=== PATIENT | female | born 1980 | race African-American/Black ===

== ENCOUNTER 2016-10-27 21:34 | Emergency (ER) | payer OTHER ==
[~2016-10-27] VITALS: Ht 170.2 cm; Wt 95.3 kg
[~2016-10-27 21:34] MED LIST: BACTRIM DS TAB1 EACH PO; BENADRYL25 MG; DARVOCET-N 1001 EACH PO; FIORICET 50-321 EACH PO; FLEXERIL PO; IBUPROFEN 600600 M1 PO; IBUPROFEN 800800 M1 PO; NEURONTIN 300300 M1 PO; NORCO 5-325 TA1 EACH PO; NORFLEX100 MG PO; PERCOCET 5-3251 EACH PO; PREDNISONE 20 M20 M1 PO; PROAIR HFA8.5 GM; TRAMADOL 50 MG50 MG PO; ULTRAM 50MG TAB50 MG PO; VALIUM2 MG PO
[2016-10-27 21:37] VITALS: BP 159/97
[2016-10-27] MEDS ORDERED: VENLAFAXIN37.5 MG/1 PO (21:42)
[2016-10-27] MEDS ORDERED: ATIVAN0.5 M1 PO (22:07)
== END 2016-10-27 22:31 | disposition home or self-care (01) ==
LOC: ER 21:34
DX: F41.9 Anxiety disorder, unspecified (principal); J45.909 Unspecified asthma, uncomplicated; Z88.1 Allergy status to other antibiotic agents

== ENCOUNTER 2017-09-29 10:33 | Emergency (ER) | payer OTHER ==
[~2017-09-29] VITALS: Ht 170.2 cm; Wt 95.3 kg
[~2017-09-29 10:33] MED LIST changes: +ATIVAN0.5 M1 PO; +VENLAFAXIN37.5 MG/1 PO
[2017-09-29] MEDS ORDERED: MOBIC7.5 MG PO (10:58)
[2017-09-29 11:27] LABS: HEMATOCRIT 30.9 % (37.0-47.0); HEMOGLOBIN 10.1 gm/dL (12.0-15.0); MCH 27.6 pg (26.0-34.0); MCHC 32.7 g/dL (28.0-37.0); MCV 84.4 fL (80.0-100.0); PLATELET COUNT 248 thou/uL (150-400); RBC 3.66 mil/uL (4.20-5.00); RDW 15.8 % (10.5-14.5); WBC 2.4 thou/uL (4.0-11.0)
[2017-09-29 11:36] LABS: CALCIUM 8.5 mg/dL (8.5-10.1); CREATININE 0.7 mg/dL (0.6-1.0); POTASSIUM 3.8 mmol/L (3.5-5.1)
[2017-09-29 11:42] LABS: ALBUMIN 3.2 g/dL (3.4-5.0); TOTAL BILIRUBIN 0.3 mg/dL (<0.1-1.0); TOTAL PROTEIN 7.3 g/dL (6.4-8.2)
[2017-09-29 12:02] LABS: ANISOCYTOSIS 1+; OVALOCYTES 1+
[2017-09-29] MEDS ORDERED: PREDNISONE 20 M20 MG PO (12:02)
[2017-09-29 12:19] VITALS: BP 122/76
== END 2017-09-29 12:19 | disposition home or self-care (01) ==
LOC: ER 10:33
PROVIDERS: Emergency Medicine
DX: R60.9 Edema, unspecified (principal); D72.819 Decreased white blood cell count, unspecified; J45.909 Unspecified asthma, uncomplicated; Z88.8 Allergy status to other drugs, medicaments and biological substances

== ENCOUNTER 2017-10-29 14:13 | Emergency (ER) | payer OTHER ==
[~2017-10-29] VITALS: Ht 170.2 cm; Wt 97.1 kg
[~2017-10-29 14:13] MED LIST changes: +MOBIC7.5 MG PO; +PREDNISONE 20 M20 MG PO
[2017-10-29] MEDS ORDERED: GABAPENTIN 100100 MG PO (14:15)
[2017-10-29 14:32] LABS: URINE BILIRUBIN NEGATIVE (Negative); URINE BLOOD TRACE (Negative); URINE CLARITY SL CLOUDY; URINE COLOR YELLOW; URINE GLUCOSE-RANDOM* NEGATIVE (Negative); URINE KETONES NEGATIVE (Negative); URINE LEUKOCYTES 1+ (Negative); URINE NITRITE NEGATIVE (Negative); URINE PROTEIN (DIPSTICK) NEGATIVE (Negative); URINE SPECIFIC GRAVITY >= 1.030 (1.005-1.035); URINE UROBILINOGEN 0.2 E.U./dl (0.2-1.0)
[2017-10-29] MEDS ORDERED: MACROBID 100 M100 M1 PO (14:36)
[2017-10-29 14:39] LABS: SQUAMOUS 4-10 Moderate /LPF (0-3)
[2017-10-29 14:40] LABS: BACTERIA 1-9 Few /HPF (None Seen); CASTS None Seen /LPF (None Seen); CRYSTALS None Seen /LPF (None Seen); URINE RBC 3-10 Few /HPF (0-2)
== END 2017-10-29 15:09 | disposition home or self-care (01) ==
LOC: ER 14:13
PROVIDERS: Emergency Medicine
DX: N39.0 Urinary tract infection, site not specified (principal); J45.909 Unspecified asthma, uncomplicated; Z88.8 Allergy status to other drugs, medicaments and biological substances

== ENCOUNTER 2018-11-09 05:26 | Emergency (ER) | payer OTHER ==
[~2018-11-09] VITALS: Ht 170.2 cm; Wt 97.5 kg
[~2018-11-09 05:26] MED LIST changes: +GABAPENTIN 100100 MG PO; +MACROBID 100 M100 M1 PO
[2018-11-09] MEDS ORDERED: KEFLEX500 M1 PO (06:22)
[2018-11-09 06:29] VITALS: BP 122/67
== END 2018-11-09 06:30 | disposition home or self-care (01) ==
LOC: ER 05:26
DX: L03.113 Cellulitis of right upper limb (principal); J45.909 Unspecified asthma, uncomplicated; Z88.8 Allergy status to other drugs, medicaments and biological substances

== ENCOUNTER 2020-08-27 22:48 | Emergency (ER) | payer OTHER ==
[~2020-08-27] VITALS: Ht 170.2 cm; Wt 84.4 kg
[~2020-08-27 22:48] MED LIST changes: +KEFLEX500 M1 PO
[2020-08-27 22:54] VITALS: BP 143/84
[2020-08-28] MEDS ORDERED: PROMETH-CODEIN 65 ML PO (08:39)
[2020-08-28] MEDS ORDERED: AZITHROMYCIN 2250 MG PO (08:39)
[2020-08-30] MEDS ORDERED: PEPCID20 MG PO (12:32)
[2020-08-30] MEDS ORDERED: CEFDINIR300 MG PO (12:32)
[2020-08-30] MEDS ORDERED: LIDOPATCH1 EACH TRANSDERM (12:32)
[2020-08-30] MEDS ORDERED: PROAIR HFA8.5 GM INH (12:32)
[2020-08-30] MEDS ORDERED: DECADRON4 MG PO (12:32)
[2020-08-30] MEDS ORDERED: ACETAMINOPHEN325 M1 PO (12:32)
== END 2020-08-28 00:05 | disposition left against medical advice (07) ==
LOC: ER 22:48
DX: R51.9 Headache, unspecified (principal); Z53.21 Procedure and treatment not carried out due to patient leaving prior to being seen by health care provider

== ENCOUNTER 2020-08-28 06:07 | Emergency (ER) | payer OTHER ==
[~2020-08-28] VITALS: Ht 167.6 cm; Wt 84.4 kg
[2020-08-28 07:42] LABS: URINE BILIRUBIN NEGATIVE (Negative); URINE BLOOD NEGATIVE (Negative); URINE CLARITY CLEAR; URINE COLOR YELLOW; URINE GLUCOSE-RANDOM* NEGATIVE (Negative); URINE KETONES NEGATIVE (Negative); URINE LEUKOCYTES-REFLEX NEGATIVE (Negative); URINE NITRITE-REFLEX NEGATIVE (Negative); URINE PROTEIN (DIPSTICK) NEGATIVE (Negative); URINE UROBILINOGEN 0.2 E.U./dl (0.2-1.0)
[2020-08-28] MEDS ORDERED: PROMETH-CODEIN 65 ML PO ×2 (08:39)
[2020-08-28] MEDS ORDERED: AZITHROMYCIN 2250 MG PO ×2 (08:39)
[2020-08-28 08:57] VITALS: BP 140/91
== END 2020-08-28 08:58 | disposition home or self-care (01) ==
LOC: ER 06:07
PROVIDERS: Emergency Medicine
DX: J18.9 Pneumonia, unspecified organism (principal); J45.909 Unspecified asthma, uncomplicated; Z79.899 Other long term (current) drug therapy; Z88.8 Allergy status to other drugs, medicaments and biological substances; Z20.822 Contact with and (suspected) exposure to COVID-19

== ENCOUNTER 2020-08-28 16:06 | Inpatient (IN) | payer BC, OTHER ==
[~2020-08-28] VITALS: Ht 170.2 cm; Wt 90.3 kg
[~2020-08-28 16:06] MED LIST changes: +AZITHROMYCIN 2250 MG PO; +PROMETH-CODEIN 65 ML PO
[2020-08-28 16:07] VITALS: BP 156/91
[2020-08-28 17:43] LABS: URINE BILIRUBIN NEGATIVE (Negative); URINE BLOOD TRACE (Negative); URINE CLARITY CLEAR; URINE COLOR YELLOW; URINE GLUCOSE-RANDOM* NEGATIVE (Negative); URINE KETONES 2+ (Negative); URINE LEUKOCYTES-REFLEX NEGATIVE (Negative); URINE NITRITE-REFLEX NEGATIVE (Negative); URINE PROTEIN (DIPSTICK) 1+ (Negative); URINE SPECIFIC GRAVITY 1.025 (1.005-1.035); URINE UROBILINOGEN 0.2 E.U./dl (0.2-1.0)
[2020-08-28 17:52] LABS: BACTERIA-REFLEX 1-9 Few /HPF (None Seen); CASTS None Seen /LPF (None Seen); CRYSTALS None Seen /LPF (None Seen); SQUAMOUS 4-10 Moderate /LPF (0-3); URINE RBC 0-2 Rare /HPF (0-2); URINE WBC-REFLEX 0-5 Rare /HPF (0-5)
[2020-08-28 18:35] LABS: ABSOLUTE NEUTROPHILS 10.2 thou/uL (1.4-8.2); BASOPHILS 0.3 % (0.0-2.0); HEMOGLOBIN 9.3 gm/dL (12.0-15.0); LYMPHOCYTES 9.7 % (24.0-44.0); MCH 28.5 pg (26.0-34.0); MCHC 32.1 g/dL (28.0-37.0); MCV 88.8 fL (80.0-100.0); MONOCYTES 6.4 % (1.0-8.0); PLATELET COUNT 298 thou/uL (150-400); POLYS 83.6 % (36.0-66.0); RBC 3.26 mil/uL (4.20-5.00); RDW 16.5 % (10.5-14.5); WBC 12.2 thou/uL (4.0-11.0)
[2020-08-28 18:43] LABS: CALCIUM 8.7 mg/dL (8.5-10.1); CREATININE 0.8 mg/dL (0.6-1.0); POTASSIUM 3.5 mmol/L (3.5-5.1)
[2020-08-28 19:00] LABS: ALBUMIN 3.2 g/dL (3.4-5.0); DIRECT BILIRUBIN 0.1 mg/dL (<0.1-0.2); TOTAL BILIRUBIN 0.5 mg/dL (0.2-1.0); TOTAL PROTEIN 7.7 g/dL (6.4-8.2)
[2020-08-28 23:07] VITALS: BP 158/71
[2020-08-28 23:22] VITALS: BP 158/71
[2020-08-28 23:45] VITALS: BP 116/77
[2020-08-29 04:32] VITALS: BP 140/79
[2020-08-29 05:58] LABS: HEMATOCRIT 27.6 % (37.0-47.0); HEMOGLOBIN 8.8 gm/dL (12.0-15.0); MCH 28.4 pg (26.0-34.0); MCHC 31.9 g/dL (28.0-37.0); RBC 3.1 mil/uL (4.20-5.00); RDW 16.7 % (10.5-14.5); WBC 12.4 thou/uL (4.0-11.0)
[2020-08-29 06:09] LABS: CALCIUM 8.5 mg/dL (8.5-10.1); CREATININE 0.7 mg/dL (0.6-1.0); POTASSIUM 3.7 mmol/L (3.5-5.1)
--- NOTE | 2020-08-29 08:02 | NUR ---
PT ARRIVED FROM ER AND PLACED IN ROOM 354. ADMISSION ASSESSMENTS COMPLETED. SEE CHARTING. ON ROOM AIR THROUGHOUT THE NIGHT. LUNGS SOUNDS NOTED TO BE DIMINISHED THROUGHOUT. TYLENOL FOR HEADACHE WITH MILD RELIEF. LORTAB FOR COMPLAINT OF RIGHT SIDED CHEST WITH ONLY MILD RELIEF. STATES SHE FEELS SHE IS BREATHING "SLIGHTLY" EASIER THIS MORNING. REPORT GIVEN TO DAY RN. COVID SWAB REPORTED "NEGATIVE." PT INFORMED.
[2020-08-29 08:45] VITALS: BP 157/91
--- NOTE | 2020-08-29 15:47 | NUR ---
ASSUMED CARE AT SHIFT CHANGE. PT A/O X , UP AD JUDY. PAIN IN R MIDDLE BACK NOT RELIEVED WITH TYLENOL OR NORCO. RN RECEIVED ORDERS FOR FENTANYL PRN AND LIDOCAINE PATCH TO HELP WITH RELIEF WELL GIVEN HEATING PAD AND REPOSITIONING. ISOLATION DC AFTER NEGATIVE COVID X [address] TANG. WILL CONT TO MONITOR AND FOLLOW POC.
--- NOTE | 2020-08-29 15:55 | NUR ---
INITIAL ASSESSMENT: BLACK reviewed chart and spoke with nursing and attending physician. Pt was admitted from home due to pneumonia. Pt placed in Enhanced Isolation to r/o COVID. Pt's first test was negative. Pt was febrile yesterday and is on IV abx and IV steroids. Pt to have chest CT today. BLACK spoke with pt via phone. Introduced role of SW. Pt is alert/orientated x 4. Pt reports she lives at home with her family. Prior to admission, pt was independent with ADLs. No use of DME. No hx of services or post-acute placement. Pt states her PCP is at [facility]. Pt unsure of name of physician, as her PCP changes frequently. Pt states she has insurance through her employer: [employer]. Pt states it is a Blue Cross[employer]Blue Shield policy, but does not have her card with her. BLACK provided into to [facility]ACE[facility] RN. Plan is for pt to discharge home when medically stable. BLACK is following to assist as needed with discharge planning.
[2020-08-29 16:09] LABS: % SATURATION 7 % (20-39); IRON 21 ug/dL (50-170); TIBC 307 ug/dL (250-450)
[2020-08-29 16:36] LABS: FOLIC ACID 6.2 ng/mL (8.6-58.9)
[2020-08-29 17:06] VITALS: BP 125/64
[2020-08-29 20:00] VITALS: BP 161/97
[2020-08-30 05:15] LABS: ABSOLUTE NEUTROPHILS 8.4 thou/uL (1.4-8.2); BASOPHILS 0.3 % (0.0-2.0); HEMATOCRIT 32.3 % (37.0-47.0); HEMOGLOBIN 10.5 gm/dL (12.0-15.0); LYMPHOCYTES 9.9 % (24.0-44.0); MCH 28.9 pg (26.0-34.0); MCHC 32.4 g/dL (28.0-37.0); MCV 89.2 fL (80.0-100.0); MONOCYTES 1.6 % (1.0-8.0); PLATELET COUNT 329 thou/uL (150-400); POLYS 88.2 % (36.0-66.0); RBC 3.62 mil/uL (4.20-5.00); RDW 16.9 % (10.5-14.5); WBC 9.5 thou/uL (4.0-11.0)
--- NOTE | 2020-08-30 07:52 | NUR ---
FOLLOWING POC WITH IVF AND IVPB ANTIBIOTICS. PAIN MEDICATION GIVEN PRN, LIDOCAINE PATCH PLACED ON BACK MIDLINE ON THE RIGHT. PT UP TO TAKE SHOWER. HOT PAD PLACED FOR PT COMFORT. HOURLY ROUNDING.
[2020-08-30 07:54] VITALS: BP 145/97
[2020-08-30] MEDS ORDERED: PEPCID20 MG PO ×2 (12:32)
[2020-08-30] MEDS ORDERED: ACETAMINOPHEN325 M1 PO ×2 (12:32)
[2020-08-30] MEDS ORDERED: PROAIR HFA8.5 GM INH ×2 (12:32)
[2020-08-30] MEDS ORDERED: DECADRON4 MG PO ×2 (12:32)
[2020-08-30] MEDS ORDERED: LIDOPATCH1 EACH TRANSDERM ×2 (12:32)
[2020-08-30] MEDS ORDERED: CEFDINIR300 MG PO ×2 (12:32)
[2020-08-30 13:13] VITALS: BP 145/97
[2020-08-30 14:15] VITALS: BP 145/97
[2020-08-30 14:16] VITALS: BP 145/97
[2020-08-30 15:30] VITALS: BP 145/97
[2020-08-30 16:02] VITALS: BP 145/97
== END 2020-08-30 15:34 | disposition home or self-care (01) | DRG 871 ==
LOC: ER 16:06 → 3W 19:35 → EROBS 19:35 → 3W 23:42
PROVIDERS: Nurse Practitioner; Nurse Practitioner Family; ADMIT Hospitalist; ATTEND Hospitalist
DX: A41.9 Sepsis, unspecified organism (principal); J18.9 Pneumonia, unspecified organism; J45.909 Unspecified asthma, uncomplicated; D64.9 Anemia, unspecified; M75.102 Unspecified rotator cuff tear or rupture of left shoulder, not specified as traumatic; Z88.8 Allergy status to other drugs, medicaments and biological substances; Z79.899 Other long term (current) drug therapy; Z20.822 Contact with and (suspected) exposure to COVID-19
CPT/HCPCS: 10080

== ENCOUNTER 2020-09-03 08:24 | Emergency (ER) | payer BC, OTHER ==
[~2020-09-03] VITALS: Ht 170.2 cm; Wt 90.3 kg
[~2020-09-03 08:24] MED LIST changes: +ACETAMINOPHEN325 M1 PO; +CEFDINIR300 MG PO; +DECADRON4 MG PO; +LIDOPATCH1 EACH TRANSDERM; +PEPCID20 MG PO; +PROAIR HFA8.5 GM INH
[2020-09-03 09:28] LABS: BASOPHILS 0.8 % (0.0-2.0); EOSINOPHILS 0.8 % (0.0-3.0); HEMATOCRIT 25.7 % (37.0-47.0); HEMOGLOBIN 8.3 gm/dL (12.0-15.0); LYMPHOCYTES 34.3 % (24.0-44.0); MCH 28.9 pg (26.0-34.0); MCHC 32.4 g/dL (28.0-37.0); MCV 89.2 fL (80.0-100.0); PLATELET COUNT 435 thou/uL (150-400); POLYS 56.1 % (36.0-66.0); RBC 2.88 mil/uL (4.20-5.00); RDW 16.7 % (10.5-14.5); WBC 7.2 thou/uL (4.0-11.0)
--- NOTE | 2020-09-03 09:44 | EKG ---
[address] [address] ELECTROCARDIOGRAM REPORT Name: ZOEY HERNANDEZ Room #: [facility]#: [id number] Admission: 09/03/20 Attend Phys: Discharge: Date of : 80 Report #: [id number] [facility] ED Test Date: 2020-09-03 Test Time: 08:53:00 Pat Name: ZOEY HERNANDEZ Department: Room: Gender: F [employer] Sustainability Manager: GENEVA BOYER : 1980 Requested By: Ki Summers Order Number: [id number] MD: Tay Heck Measurements Intervals [place] Rate: 65 P: 45 UT: 204 QRS: 26 QRSD: 99 T: 11 QT: 409 QTc: 426 Interpretive Statements Sinus rhythm No significant abnormality No previous ECG available for comparison Electronically Signed On 09-03-2020 9:44:19 CDT by Tay Heck [email or web address] <ELECTRONICALLY SIGNED> By: Tay Heck MD, [facility] 09/03/20 [id number] Tay Heck MD, FACC /EPI
[2020-09-03 09:46] LABS: ANION GAP 9 mmol/L (7-16); BUN 7 mg/dL (7-18); CALCIUM 8.3 mg/dL (8.5-10.1); CHLORIDE 108 mmol/L (98-107); CO2 27 mmol/L (21-32); CREATININE 0.6 mg/dL (0.6-1.0); GLUCOSE 88 mg/dL (74-106); SODIUM 144 mmol/L (136-145)
[2020-09-03 09:57] LABS: ALBUMIN 2.5 g/dL (3.4-5.0); AMYLASE 25 U/L (25-115); LIPASE 120 U/L (73-393); SGOT 11 U/L (15-37); SGPT 26 U/L (14-59); TOTAL BILIRUBIN 0.2 mg/dL (0.2-1.0); TOTAL PROTEIN 6.6 g/dL (6.4-8.2); TROPONIN-I <0.06 ng/mL (<0.06)
[2020-09-03 10:23] LABS: URINE BILIRUBIN NEGATIVE (Negative); URINE BLOOD 3+ (Negative); URINE CLARITY CLEAR; URINE COLOR YELLOW; URINE GLUCOSE-RANDOM* NEGATIVE (Negative); URINE KETONES NEGATIVE (Negative); URINE LEUKOCYTES-REFLEX NEGATIVE (Negative); URINE NITRITE-REFLEX NEGATIVE (Negative); URINE PROTEIN (DIPSTICK) NEGATIVE (Negative); URINE UROBILINOGEN 0.2 E.U./dl (0.2-1.0)
[2020-09-03 10:32] LABS: CASTS None Seen /LPF (None Seen); SQUAMOUS >10 Many /LPF (0-3); URINE RBC 3-10 Few /HPF (0-2)
[2020-09-03 10:33] LABS: BACTERIA-REFLEX 1-9 Few /HPF (None Seen); CRYSTALS None Seen /LPF (None Seen); URINE WBC-REFLEX None Seen /HPF (0-5)
[2020-09-03 15:44] VITALS: BP 160/100
== END 2020-09-03 15:46 | disposition home or self-care (01) ==
LOC: ER 08:24
PROVIDERS: Emergency Medicine
DX: J90 Pleural effusion, not elsewhere classified (principal); D64.9 Anemia, unspecified; R06.00 Dyspnea, unspecified; J45.909 Unspecified asthma, uncomplicated; Z98.890 Other specified postprocedural states; Z88.1 Allergy status to other antibiotic agents; Z79.899 Other long term (current) drug therapy

== ENCOUNTER 2020-12-31 10:50 | Emergency (ER) | payer BC, OTHER ==
[~2020-12-31] VITALS: Ht 170.2 cm; Wt 88.5 kg
[2020-12-31 11:20] VITALS: BP 134/84
[2020-12-31] MEDS ORDERED: HYDROCODON-ACE1 EAC7 PO (11:40)
== END 2020-12-31 11:38 | disposition home or self-care (01) ==
LOC: ER 10:50
DX: S49.91XA Unspecified injury of right shoulder and upper arm, initial encounter (principal); J45.909 Unspecified asthma, uncomplicated; Z88.1 Allergy status to other antibiotic agents; Z79.899 Other long term (current) drug therapy; W50.0XXA Accidental hit or strike by another person, initial encounter; Y93.02 Activity, running; Y92.89 Other specified places as the place of occurrence of the external cause; Y99.8 Other external cause status

== ENCOUNTER 2021-03-23 22:46 | Emergency (ER) | payer BC, OTHER ==
[~2021-03-23] VITALS: Ht 170.2 cm; Wt 94.8 kg
[~2021-03-23 22:46] MED LIST changes: +HYDROCODON-ACE1 EAC7 PO
[2021-03-23 22:58] VITALS: BP 134/74
[2021-03-23] MEDS ORDERED: MOBIC7.5 MG PO (23:02)
== END 2021-03-23 23:41 | disposition home or self-care (01) ==
LOC: ER 22:46
DX: G89.18 Other acute postprocedural pain (principal); M25.511 Pain in right shoulder; J45.909 Unspecified asthma, uncomplicated; Z98.890 Other specified postprocedural states; Z79.51 Long term (current) use of inhaled steroids; Z79.891 Long term (current) use of opiate analgesic; Z79.899 Other long term (current) drug therapy; Z79.1 Long term (current) use of non-steroidal anti-inflammatories (NSAID); Z88.8 Allergy status to other drugs, medicaments and biological substances